=== PATIENT | female | born 1955 | race Caucasian/White ===

== ENCOUNTER 2022-02-06 14:10 | Emergency (ER) | payer OTHER ==
[2022-02-06] MEDS ORDERED: IBUPROFEN 600 MG TABLET (FP) PO ONE ×2 (14:35→14:41)
[2022-02-06 14:44] VITALS: BP 170/91; PULSE 62; RESP 20; TEMP 98.3; BMI 22.6
== END 2022-02-06 15:14 | disposition home or self-care (01) ==
LOC: FER 14:10
DX: S16.1XXA Strain of muscle, fascia and tendon at neck level, initial encounter (principal); V89.2XXA Person injured in unspecified motor-vehicle accident, traffic, initial encounter; Y92.9 Unspecified place or not applicable
CPT/HCPCS: 99283-25